=== PATIENT | female | born 1955 | race Caucasian/White ===

== ENCOUNTER 2020-08-29 09:19 | Outpatient (CLI) | payer OTHER, SELFPAY ==
--- NOTE | ~2020-08-29 | MM_ITS ---
EXAMINATION: MM screening neema BI w maco HISTORY: Screening mammogram, family history of breast cancer in her mother. TECHNIQUE: Craniocaudal and mediolateral oblique 3-D tomosynthesis images were obtained and synthetic 2-D images were generated. CAD analysis was submitted and interpreted. COMPARISON: 08/26/2019, 08/25/2018, 10/19/2018, 08/13/2017 BREAST PARENCHYMAL COMPOSITION: There are scattered areas of fibroglandular density. FINDINGS: There is no evidence of suspicious mass, calcification, or architectural distortion to sugg est malignancy in either breast. There has been no suspicious interval change. IMPRESSION: 1. No mammographic evidence of malignancy. 2. Recommend routine screening mammography in one year. BI-RADS Category 1: Negative Reviewed, dictated and finalized at location A. E SUPERINTENDENT
== END 2020-08-29 09:20 | disposition home or self-care (01) ==
LOC: ANHIMG 09:22
PROVIDERS: PCP Obstetrics & Gynecology; Visit Provider Obstetrics & Gynecology
DX: Z12.31 Encounter for screening mammogram for malignant neoplasm of breast (principal)
CPT/HCPCS: 77063; 77067

== ENCOUNTER 2021-03-01 12:42 | Outpatient (CLI) | payer OTHER, SELFPAY ==
[2021-03-01 13:58] LABS: Basophils Absolute Auto 0.1 K/mm3 (0.0-0.1); Basophils Percent Auto 0.7 % (0.2-1.2); Eosinophils Absolute Auto 0.4 K/mm3 (0-0.3); Hematocrit 41.6 % (37.0-47.0); Hemoglobin 13.7 g/dL (12.0-15.0); Immature Granulocyte Absolute 0.03 K/mm3 (0.00-0.031); Immature Granulocyte Percent A 0.4 % (0-0.5); Lymphocytes Absolute Auto 2.27 K/mm3 (0.9-3.2); Lymphocytes Percent Auto 28.3 % (18.3-44.2); Mean Corpuscular HGB Conc 32.9 g/dl (32-36); Mean Corpuscular Hemoglobin 29.9 pg (26-34); Mean Corpuscular Volume 90.8 fl (80-100); Mean Platelet Volume 8.7 fl (7.4-10.4); Monocytes Absolute Auto 0.5 K/mm3 (0.1-0.6); Monocytes Percent Auto 6.7 % (2.6-8.5); Neutrophils Absolute Auto 4.7 K/mm3 (1.3-6.7); Neutrophils Percent Auto 58.9 % (45.5-73.1); Platelet Count Result 314 k/mm3 (150-375); Red Blood Count 4.58 M/mm3 (4.2-5.4); Red Cell Distribution Width 12.8 % (11.5-14.5)
[2021-03-01 14:09] LABS: INR 0.9; Partial Thromboplastin Time 25.2 SECONDS (22.3-36.8); Prothrombin Time 12.8 Seconds (11.1-14.7)
[2021-03-01 14:12] LABS: Alanine Aminotransferase 12 U/L (4-35); Albumin Level 4.7 g/dL (3.5-5.1); Alkaline Phosphatase 75 U/L (38-126); Anion Gap 2 mmol/L (8-16); Aspartate Amino Transferase 24 U/L (14-36); Bilirubin,Total 0.4 mg/dL (0.2-1.3); Blood Urea Nitrogen 14 mg/dL (7-17); Carbon Dioxide 35 mmol/L (22-30); Chloride 103 mmol/L (98-107); Estimated Glomerular Filt Rate > 60; Glucose 95 mg/dL (65-105); Potassium 3.9 mmol/L (3.4-5.0); Sodium 140 mmol/L (137-145)
== END 2021-03-01 12:43 | disposition home or self-care (01) ==
PROVIDERS: PCP Internal Medicine; Visit Provider Urology
DX: N39.3 Stress incontinence (female) (male) (principal); Z01.818 Encounter for other preprocedural examination
CPT/HCPCS: 36415; 80053; 85025; 85610; 85730; 86850; 86900; 86901; 87086

== ENCOUNTER → 2021-03-10 07:40 | Outpatient (CLI) | payer OTHER, SELFPAY ==
[2021-03-10 19:22] LABS: SARS-CoV-2 RNA PCR Negative
== END ==
PROVIDERS: PCP Internal Medicine; Visit Provider Urology
DX: Z01.812 Encounter for preprocedural laboratory examination (principal); Z20.822 Contact with and (suspected) exposure to COVID-19
CPT/HCPCS: C9803; U0003; U0005

== ENCOUNTER 2021-03-13 01:12 | Day surgery (SDC) | payer OTHER, SELFPAY ==
[2021-03-01 13:12] VITALS: BP 132/86; PULSE 69; RESP 16; TEMP 37.9; O2SAT 98; BMI 26.2
--- NOTE | 2021-03-10 08:10 | PM.IMHP ---
H&P: HPI History of Present Illness Date/Time: 03/10/21 08:10 65-year-old with post hysterectomy vaginal vault prolapse as well as stress incontinence Chief Complaint: Vaginal wall prolapse Review of Systems Review of Systems: All systems reviewed & are unremarkable except as noted in HPI and below PMFSH Family History Family History (Updated 03/10/21 @ 08:11 by Jam Sow MD) Other Breast cancer Social History Social History Smoking packs per day: 1 Smoking cigarettes per day: 20.0 Years smoked: 15 Smoking pack-years: 15.00 Smoking status: Former smoker Tobacco type: cigarettes Smoking end date: 04/20/00 Alcohol intake: current Substance use: never Additional living arrangements comments: HUSB Spiritual care concerns: No Meds Home Medications and Allergies Home Medications Medication Instructions Recorded Confirmed Type No Home Medications 03/01/21 03/01/21 History Allergies Allergy/AdvReac Type Severity Reaction Status Date / Time No Known Allergies Allergy Verified 03/01/21 13:09 Exam Const: General: cooperative and healthy appearing HENMT: Head: normal to inspection Face and sinus: normal facial exam Eyes: General: appearance normal, both eyes and all related structures Resp: Effort & Inspection: normal respiratory effort and able to speak in complete sentences GI: Inspection: normal to inspection : Bimanual Exam- Adnexa, other: cystocele (+3) and vaginal apex descent (-1) Skin: General skin exam: normal color Neuro: General: oriented to person, oriented to place and oriented to time Extrem: General: normal to inspection Assessment and Plan Assessment and plan (1) Prolapse of vaginal vault after hysterectomy: Code(s): N99.3 - Prolapse of vaginal vault after hysterectomy Status: Acute Assessment and Plan: Robotic sacral colpopexy (2) OTTO (stress urinary incontinence, female): Code(s): N39.3 - Stress incontinence (female) (male) Status: Acute Assessment and Plan: Urethral sling
[2021-03-13] VITALS (14 sets, daily range): BP systolic 89–170; BP diastolic 56–85; PULSE 45–97; RESP 8–20; TEMP 36.2–36.8; O2SAT 97–100; BMI 26.2
--- NOTE | 2021-03-13 07:20 | WPDHPUPDATE1 ---
History and Physical Update Update Date/Time: 03/13/21 07:20 History and Physical has been reviewed, including an updated exam of the patient. There are NO changes in the patient's condition. Risks, benefits, and alternatives have been discussed and questions answered. Patient agrees to proceed with procedure.
--- NOTE | 2021-03-13 09:43 | WPDANESEPPF ---
Anes - Initial Pre Proc Eval Procedure: Operation Date: 03/13/21 10:30 Proposed Procedures p Robotic Sacrocolpopexy, - Jam Sow MD s Urethral Sling - Jam Sow MD Date/Time: 03/13/21 09:43 Surgeon: Jam Sow MD Pre Op Diagnosis: stress incontinence, vag vault prolapse Patient Data Age: 65 Gender: F Height: 1.59 m Weight: 66 kg Last Vital Signs Temp 36.6 C 03/13/21 08:53 Pulse 69 03/13/21 08:53 Resp 18 03/13/21 08:53 BP 170/80 H 03/13/21 08:53 Pulse Ox 99 03/13/21 08:53 Allergies Allergy/AdvReac Type Severity Reaction Status Date / Time No Known Allergies Allergy Verified 03/13/21 08:57 Home Medications Medication Instructions Recorded Confirmed Type No Home Medications 03/01/21 03/01/21 History Patient hx anesthesia problems: none Family hx anesthesia problems: none PMFSH Past Medical History Medical History (Updated 03/13/21 @ 09:41 by Garrett Romeo MD) GERD (gastroesophageal reflux disease) Family History Family History (Updated 03/10/21 @ 08:11 by Jam Sow MD) Other Breast cancer Social History Social History Smoking packs per day: 1 Smoking cigarettes per day: 20.0 Years smoked: 15 Smoking pack-years: 15.00 Smoking status: Former smoker Tobacco type: cigarettes Smoking end date: 10/21/05 Alcohol intake: current Alcohol use details: FEW DRINKS/MONTH Substance use: never Living arrangements: with family Additional living arrangements comments: HUSB Spiritual care concerns: No Anes - Eval Final PreProcedure Day of Procedure 03/13/21 09:43 Patient weight: overweight Heart: regular rate and rhythm Lungs: clear to auscultation and normal air movement Airway: Mallampati scale class II Neurological: alert and oriented Last oral intake: >/= 8 hours ASA classification: II Emergent: no Anesthetic plan: proceed Anesthesia type and monitoring: general ETT and standard monitoring Informed Consent: The patient's anesthetic plan and its attendant risks and benefits were discussed with the patient/family/POA. Questions were solicited and answers provided to the satisfaction of the patient/family/POA.
[2021-03-13] MEDS: LACTATED RINGERS 1,000 ML 30 ML IV CONT ×2 (09:55→14:39)
[2021-03-13] MEDS: ceFAZolin 2 GM/D5W 50 ML 2 GM/50 ML BAG IVPB (10:49)
[2021-03-13] MEDS: BUPIVACAINE/EPINEPHRINE 0.25% 10 ML VIAL 20 ML INFILTRATE (11:37)
--- NOTE | 2021-03-13 14:17 | PM.PROC ---
Procedure Note - Detailed Date of procedure: 03/13/21 Pre-op diagnosis: stress incontinence, vag vault prolapse Post hysterectomy vaginal vault prolapse Stress urinary incontinence Post-op diagnosis: same Procedure performed: Robotic assisted laparoscopic sacral colpopexy Miid urethral sling Description of procedure: She understands the risks of bleeding, infection, recurrence of prolapse, diskitis, postoperative voiding dysfunction including incontinence and retention, dyspareunia, persistent or recurrent stress incontinence, vaginal mesh extrusion, urinary tract mesh erosion, bowel injury or obstruction, damage to surrounding organs, medical related complications. Agrees to proceed She was correctly identified and informed consent was obtained. She is brought to the operating room. She was given general anesthesia. She was placed in the low lithotomy position. All pressure points were padded. She was given appropriate perioperative antibiotics. A time-out was performed. I anesthetized the skin 3 fingerbreadths cephalad to the umbilicus. I incised the skin. I located the fascia. I entered the fascia sharply. I placed Vicryl sutures for later fascial closure. I placed a midline trocar. Under direct vision 2 additional trocars were placed in the right and left upper quadrant. She was placed in steep Trendelenburg. The robot was docked. I then sat at the console. There are quite a bit of adhesions of the colon in the cul-de-sac. The colon was also adhesed to the right lower quadrant. I took down all adhesions sharply taking great care not to injure underlying organs. With the Sizer in the vagina I created a plane on the anterior and posterior vaginal wall. I took great care not to injure the vagina bladder or rectum. I introduced the mesh into the abdomen. I sewed the anterior leaflet of mesh on the anterior vaginal wall and posterior leaflet of mesh on the posterior vaginal wall with several sutures with 2 Goritex taking great care not to go through and through. I then reflected the colon laterally. I opened up the peritoneum over the sacral promontory. I carried this incision into the cul-de-sac. I located the ureter and kept lateral. I freed up the edges of the peritoneum. I located the anterior longitudinal ligament of the sacrum. I then tensioned my mesh appropriately. I did a vaginal exam to ensure prolapse reduction without undue tension. I then sewed the proximal leaflet of mesh onto the ligament with 4 sutures of 2 0 [place]-Sinan. I used a 2 0 Monocryl to completely and meticulously retroperitonealized all mesh. I allowed the colon to go back into its normal anatomic location no sign of any impingement or stricturing. The abdomen was exited. Fascial sutures were closed. Skin was closed. Glue was applied. She was repositioned and prepped for urethral sling. I marked out the thigh incisions. I anesthetized the skin and made those incisions. I anesthetized the anterior vaginal wall over the mid urethra. I made a 1 cm incision. I dissected out laterally taking great care not to injure the urethra or the vaginal wall. I passed the helical trocars. First on the left and then on the right. This was done from the thigh incision towards the vaginal incision. The sling was connected to the trocars and brought out through the thigh incision. I tensioned the sling appropriately. I cut and removed the plastic sheaths. I then closed the incision with 2 0 Vicryl. Cystoscopy showed no surgical artifact in the bladder. No surgical artifact in the urethra. Ureteral orifices were seen to excrete clear yellow urine. The Barbour catheter was replaced. She was awakened and transferred to the PACU in stable condition. Implants: Y mesh Anesthesia: GETA Surgeon: Jam Sow MD Drains: Yes (Barbour catheter) Packing: No Pathology: none sent Complications: No immediate complications Condition: stable Disposition: PACU
[2021-03-13] MEDS: fentaNYL CITRATE INJ (*CRX) 100 MCG/2 ML VIAL 25 MCG IV PUSH ×3 (14:35→15:01)
--- NOTE | 2021-03-13 16:16 | SUR.PHASEII ---
1607 - pt sleepy. pt states that she would like to stay the night. dr. buck aware. pt's daughter Sarina called and aware.
[2021-03-13] MEDS: KCL 20 MEQ/D5/0.45% SOD CHL 1,000 ML 100 ML IV CONT (17:30)
--- NOTE | 2021-03-13 17:36 | OBPPTRN ---
1709 Patient transferred to post room #280 via bed. Oriented to unit, room, information board, admission packet and security measures. Patient verbalizes understanding.
[2021-03-13] MEDS: ONDANSETRON INJ 4 MG/2 ML VIAL IV PUSH (20:16)
[2021-03-14] MEDS: FAMOTIDINE 20 MG TABLET PO (01:52)
[2021-03-14 05:50] VITALS: BP 107/62; PULSE 93; RESP 15; TEMP 37.2
[2021-03-14] MEDS: DOCUSATE SODIUM 100 MG CAPSULE PO (07:40)
[2021-03-14] MEDS: ACETAMINOPHEN 325 MG TABLET 650 MG PO (07:41)
[2021-03-14 08:35] VITALS: BP 104/65; PULSE 76; RESP 16; TEMP 37.7; O2SAT 99
--- NOTE | 2021-03-14 08:54 | WPDANESPN ---
Anes - Prog Note Post-Op Date/Time: 03/14/21 08:54 Cardiovascular status: normal Respiratory status: normal Airway patency: baseline Mental status: baseline Post-Op hydration status: normal Vital Signs: Last Vital Signs Temp 37.2 C 03/14/21 05:50 Pulse 93 03/14/21 05:50 Resp 15 03/14/21 05:50 BP 107/62 03/14/21 05:50 Pulse Ox 98 03/13/21 17:09 Pain Score (VAS): 3 I/O: Intake & Output 03/13/21 03/14/21 03/14/21 23:59 07:59 15:59 Intake Total 200 2000 Output Total 200 3600 Balance 0 -1600 Post-procedural complaints: none Patient Feedback: Patient satisfied with anesthetic care.
[2021-03-14] MEDS: ENOXAPARIN 30 MG/0.3 ML SYRINGE SUB-Q (09:30)
--- NOTE | 2021-03-14 12:15 | WPDUROPN2 ---
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 (2) OTTO (stress urinary incontinence, female): Code(s): N39.3 - Stress incontinence (female) (male) Status: Acute Subjective Subjective Date/Time Seen: 03/14/21 12:15 POD# 1 Robotic Assisted Laparoscopic Sacaral Colpopexy, Mid Urethral Sling Patient doing very well, has no complaints today, is waiting to urinate since jackson was pulled. Pain is tolerable and no nausea with eating or drinking. Review of Systems Cardiovascular: Cardiovascular: Denies chest pain Respiratory: Respiratory: Reports no additional respiratory complaints Gastrointestinal: Gastrointestinal: Denies abdominal pain, Denies nausea and Denies vomiting Genitourinary: Genitourinary: Denies hematuria, Denies dysuria, Denies pelvic pain, Denies flank pain and Denies urinary urgency Exam Resp: Effort & Inspection: normal respiratory effort Cardio: Rate: regular rate GI: Inspection: incision (all are well approximated, no drainage or edema noted, slightly tender ) : General: Yes no CVA tenderness Extrem: General: no edema Objective Data Vital Signs Vital Signs: Vital Signs - 24 hr 03/13/21 14:19 03/13/21 14:30 03/13/21 14:45 Temperature Pulse Rate 59 L 45 L 61 Respiratory Rate 12 9 L 11 L Blood Pressure 128/77 125/84 118/84 Pulse Oximetry 99 100 100 03/13/21 15:00 03/13/21 15:15 03/13/21 15:30 Temperature Pulse Rate 50 L 50 L 61 Respiratory Rate 10 L 8 L 12 Blood Pressure 89/61 L 91/56 L 116/74 Pulse Oximetry 100 100 100 03/13/21 15:40 03/13/21 15:43 03/13/21 16:10 Temperature Pulse Rate 67 54 L 58 L Respiratory Rate 13 20 20 Blood Pressure 119/73 137/85 121/62 Pulse Oximetry 97 03/13/21 16:40 03/13/21 17:09 03/13/21 19:00 Temperature 97.1 F L 98.0 F Pulse Rate 97 59 L 85 Respiratory Rate 20 12 14 Blood Pressure 120/66 123/73 135/84 Pulse Oximetry 98 03/13/21 23:00 03/14/21 05:50 03/14/21 08:35 Temperature 98.2 F 99.0 F 99.8 F H Pulse Rate 78 93 76 Respiratory Rate 16 15 16 Blood Pressure 130/78 107/62 104/65 Pulse Oximetry 99 Intake/Output Intake/Output: Intake & Output 03/11/21 03/12/21 03/13/21 03/14/21 23:59 23:59 23:59 23:59 Intake Total 600 2050 Output Total 300 3600 Balance 300 -1550 Meds/Results Medications: Active Medications Generic Name Dose Route Start Last Admin Trade Name Freq PRN Reason Stop Dose Admin Acetaminophen 650 mg 03/13/21 17:03 03/14/21 07:41 Acetaminophen 325 Mg Tablet PO 650 mg Q4H PRN Administration Mild Pain (1-3) or Fever Hydrocodone Bitart/Acetaminophen 1 tab 03/13/21 17:03 Hydrocodone/Acetaminophen (*Crx) 5-325 Mg Tablet PO Q4H PRN Pain Rated 4-5 Cephalexin HCl 500 mg 03/14/21 17:00 Cephalexin 500 Mg Capsule PO QID TIFFANY Diphenhydramine HCl 25 mg 03/13/21 17:03 Diphenhydramine Hcl Inj 50 Mg/Ml Vial IV PUSH Q6H PRN Itching Docusate Sodium 100 mg 03/14/21 09:00 03/14/21 07:40 Docusate Sodium 100 Mg Capsule PO 100 mg DAILY TIFFANY Administration Enoxaparin Sodium 30 mg 03/14/21 09:00 03/14/21 09:30 Enoxaparin 30 Mg/0.3 Ml Syringe SUB-Q 30 mg DAILY TIFFANY Administration Potassium Chloride/Dextrose/Sod Cl 1,000 mls @ 100 mls/hr 03/13/21 17:03 03/13/21 17:30 Kcl 20 Meq/D5/0.45% Sod Chl IV CONT 100 mls/hr .Q10H TIFFANY Administration Ketorolac Tromethamine 15 mg 03/13/21 17:03 Ketorolac 15 Mg/Ml Vial (*Bkc) IV PUSH 03/14/21 17:04 Q8H PRN Pain Rated 5 or Less Morphine Sulfate 2 mg 03/13/21 17:03 Morphine Sulfate (*Crx) 2 Mg/Ml Inj IV PUSH Q2H PRN Pain Rated 6 or Greater Ondansetron HCl 4 mg 03/13/21 17:03 03/13/21 20:16 Ondan
== END 2021-03-14 14:20 | disposition home or self-care (01) ==
LOC: ANHSURGERY 14:21 → ANHOB2 17:05
PROVIDERS: PCP Internal Medicine; Visit Provider Urology
PROC: (CPT 57425; principal; 2021-03-13 10:30)
PROC: (CPT 57425; 2021-03-13 10:30)
DX: N39.3 Stress incontinence (female) (male) (principal); N99.3 Prolapse of vaginal vault after hysterectomy; K21.9 Gastro-esophageal reflux disease without esophagitis; Z87.891 Personal history of nicotine dependence
CPT/HCPCS: 57425; 57288; 36415; 80053; 85025; 85610; 85730; 86850; 86900; 86901; 87086; 99199; A9270; C1771; C1781; C9290; C9803; J0690; J1100; J1170; J1650; J2250; J2405; J2704; J2710; J3010; J3480; J7030; J7120; U0003; U0005

== ENCOUNTER 2021-09-19 08:46 | Outpatient (CLI) | payer OTHER, SELFPAY ==
--- NOTE | ~2021-09-19 | MM_ITS ---
EXAMINATION: MM screening neema BI w maco HISTORY: Screening mammogram TECHNIQUE: Craniocaudal and mediolateral oblique 3-D tomosynthesis images were obtained and synthetic 2-D images were generated. CAD analysis was submitted and interpreted. COMPARISON: 08/29/2020, 08/26/2019 bilateral screening mammogram examinations BREAST PARENCHYMAL COMPOSITION: There are scattered areas of fibroglandular density. FINDINGS: There is no evidence of suspicious mass, calcification, or architectural distortion to sugg est malignancy in either breast. There has been no suspicious interval change. IMPRESSION: 1. No mammographic evidence of malignancy. 2. Recommend routine screening mammography in one year. BI-RADS Category 1: Negative Reviewed, dictated and finalized at location A. ANCE SERVICES COORDINATOR
== END 2021-09-19 08:47 | disposition home or self-care (01) ==
PROVIDERS: PCP Internal Medicine; Visit Provider Obstetrics & Gynecology
DX: Z12.31 Encounter for screening mammogram for malignant neoplasm of breast (principal)
CPT/HCPCS: 77063; 77067

== ENCOUNTER 2022-10-12 13:49 | Outpatient (CLI) | payer OTHER, MEDICARE, SELFPAY ==
--- NOTE | ~2022-10-12 | MMUS_ITS ---
EXAMINATION: MM diagnostic neema BI w maco, US breast LT limited HISTORY: Palpable left breast abnormality. TECHNIQUE: Additional 3-D tomosynthesis images of the left breast were performed and synthetic 2-D im ages were generated. CAD analysis was submitted and interpreted. High resolution Limited left breast ultrasound was performed. COMPARISON: Comparison to multiple prior studies sequentially, with oldest reviewed study dated 07/22. BREAST PARENCHYMAL COMPOSITION: BREAST PARENCHYMAL COMPOSITION: There are scattered areas of fibroglandular density. FINDINGS: MAMMOGRAPHIC FINDINGS: There are no suspicious masses, calcifications or architectural distortion in the left breast to sugg est malignancy. ULTRASOUND: Limited left breast ultrasound: Normal heterogeneous echotexture in the area of palpable concern. No discrete mass. IMPRESSION: 1. No evidence for malignancy in either breast. 2. Routine yearly screening mammogram and regular clinical breast examination are recommended. BI-RADS Category 1: Negative Reviewed, dictated and finalized at location A. 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 No evidence for malignancy in either breast. 2. Routine yearly screening mammogram and regular clinical breast examination a re recommended. BI-RADS Category 1: Negative
== END 2022-10-12 13:50 | disposition home or self-care (01) ==
LOC: ANHIMG 13:51
PROVIDERS: PCP Internal Medicine; Visit Provider Obstetrics & Gynecology
DX: R92.8 Other abnormal and inconclusive findings on diagnostic imaging of breast (principal)
CPT/HCPCS: 76642; 77062; 77066; G0279

== ENCOUNTER 2023-03-08 09:00 | Outpatient (CLI) | payer MEDICARE, SELFPAY | END 2023-03-08 09:01 | disposition home or self-care (01) | LOC: ANHAUDIO 09:03 | PROVIDERS: PCP Emergency Medicine; Visit Provider Emergency Medicine | DX: H90.3 Sensorineural hearing loss, bilateral (principal) | CPT/HCPCS: 92557; 92567 ==

== ENCOUNTER 2023-04-05 02:43 | Day surgery (SDC) | payer MEDICARE, SELFPAY ==
[2023-03-27 13:14] VITALS: BMI 26.5
--- NOTE | 2023-04-05 07:43 | WPDANESEPPF ---
Anes - Initial Pre Proc Eval Procedure: Operation Date: 04/05/23 09:30 Proposed Procedures p Esophagogastroduodenoscopy - Rowdy Tovar MD Date/Time: 04/05/23 07:43 Surgeon: Rowdy Tovar MD Pre Op Diagnosis: harvey's Esophagus Patient Data Age: 67 Gender: F Height: 1.57 m Weight: 65.77 kg Allergies Allergy/AdvReac Type Severity Reaction Status Date / Time No Known Allergies Allergy Verified 03/13/21 08:57 Patient hx anesthesia problems: none Family hx anesthesia problems: none Results Review: All pre-operative results and documents have been reviewed as part of the pre-operative evaluation. 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 OTTO (stress urinary incontinence, female) Surgical History Surgical History (Updated 04/05/23 @ 07:44 by Shola Miner MD) H/O lumpectomy H/O: hysterectomy Family History Family History (Updated 03/10/21 @ 08:11 by Jam Sow MD) Other Breast cancer Social History Social History Smoking packs per day: 1 Smoking cigarettes per day: 20.0 Years smoked: 15 Smoking pack-years: 15.00 Smoking status: Never smoker Tobacco type: cigarettes Smoking end date: 04/20/00 Alcohol intake: unknown Alcohol use details: FEW DRINKS/MONTH Substance use: never Substance use type: does not use Living arrangements: with family Additional living arrangements comments: HUSB Spiritual care concerns: No Anes - Eval Final PreProcedure Day of Procedure 04/05/23 07:43 Patient weight: overweight Heart: regular rate and rhythm Lungs: clear to auscultation and normal air movement Airway: Mallampati scale class II Neurological: alert and oriented Last oral intake: >/= 8 hours ASA classification: II Emergent: no Anesthetic plan: proceed Anesthesia type and monitoring: general GIVS and standard monitoring Results Review: All pre-operative results and documents have been reviewed as part of the pre-operative evaluation. Informed Consent: The patient's anesthetic plan and its attendant risks and benefits were discussed with the patient/family/POA. Questions were solicited and answers provided to the satisfaction of the patient/family/POA.
[2023-04-05 08:37] VITALS: BMI 27.7
[2023-04-05 08:46] VITALS: BP 143/77; PULSE 77; RESP 18; TEMP 37.1; O2SAT 100
[2023-04-05] MEDS: LACTATED RINGERS 1,000 ML 150 ML IV CONT (09:01)
--- NOTE | 2023-04-05 09:33 | P.HP_ITS ---
History of Present Illness History of Present Illness Consent: Risks, benefits, and alternatives have been discussed and questions answered. Patient agrees to proceed with procedure. Chief complaint: GERD Narrative: Evita Torres is a 67 year old female Presents for EGD. Patient complains of chronic heartburn that she has had for many years. It occurred daily. Frequent substernal heartburn was noted. Patient denies any bleeding. She has had no dysphagia. She typically would take [id number] antacids and Tums frequently. One month ago was started on omeprazole 20mg p.o. daily. She states this has helped her heartburn dramatically. She no longer has heartburn. She currently is avoiding caffeine and spicy foods. She has elevated her head of bed at night. Patient referred today for EGD because of chronic GE reflux. Family history noncontributory. Review of Systems Review of Systems: Review of systems noncontributory. [facility] Past Medical History Medical History (Updated 04/05/23 @ 09:35 by Rowdy Tovar MD) GERD (gastroesophageal reflux disease) Overweight (BMI 25.0-29.9) Prolapse of vaginal vault after hysterectomy OTTO (stress urinary incontinence, female) Surgical History Surgical History (Updated 04/05/23 @ 07:44 by Shola Miner MD) H/O lumpectomy H/O: hysterectomy Family History Family History (Updated 03/10/21 @ 08:11 by Jam Sow MD) Other Breast cancer Social History Social History Smoking packs per day: 1 Smoking cigarettes per day: 20.0 Years smoked: 15 Smoking pack-years: 15.00 Smoking status: Never smoker Tobacco type: cigarettes Smoking end date: 04/20/00 Alcohol intake: unknown Alcohol use details: FEW DRINKS/MONTH Substance use: never Substance use type: does not use Living arrangements: with family Additional living arrangements comments: HUSB Spiritual care concerns: No Meds Home Medications and Allergies Allergies Allergy/AdvReac Type Severity Reaction Status Date / Time No Known Allergies Allergy Verified 03/13/21 08:57 Vital Signs Vital Signs - 24 hr 04/05/23 08:46 Temperature 98.8 F Pulse Rate 77 Respiratory Rate 18 Blood Pressure 143/77 H Pulse Oximetry 100 Exam Narrative: Physical exam reveals patient to be alert. Vital signs stable. HEENT exam is unremarkable. Patient is anicteric. Lungs are clear to auscultation and percussion. Heart is without murmur or extra sounds. Abdomen bowel sounds are present soft nontender with no organomegaly. Assessment and Plan Assessment and plan (1) GERD (gastroesophageal reflux disease): Code(s): K21.9 - Gastro-esophageal reflux disease without esophagitis Status: Acute Assessment and Plan: Patient with chronic heartburn. Acid reflux appears to be the etiology. Good response to omeprazole 20mg p.o. daily. Plan to continue this medication long- term. Anti-reflux measures also encouraged. Screening EGD to exclude Crespo's esophagus encouraged. Additionally patient should undergo screening colonoscopy if not already accomplished.
[2023-04-05 09:53] VITALS: BP 117/69; PULSE 66; RESP 19; O2SAT 100
[2023-04-05 10:03] VITALS: BP 125/83; PULSE 64; RESP 20; O2SAT 99
[2023-04-05 10:13] VITALS: BP 144/80; PULSE 61; RESP 16; O2SAT 100
== END 2023-04-05 10:16 | disposition home or self-care (01) ==
PROVIDERS: PCP Emergency Medicine; Visit Provider Internal Medicine Gastroenterology
PROC: 0DJ08ZZ Inspection of Upper Intestinal Tract, Via Natural or Artificial Opening Endoscopic (ICD-10-PCS; CPT 43235; principal; 2023-04-05 09:30)
DX: K22.10 Ulcer of esophagus without bleeding (principal); K21.9 Gastro-esophageal reflux disease without esophagitis; K44.9 Diaphragmatic hernia without obstruction or gangrene; Z87.891 Personal history of nicotine dependence
CPT/HCPCS: 43235; J2704; J7120

== ENCOUNTER 2024-08-26 08:20 | Outpatient (CLI) | payer MEDICARE, SELFPAY ==
--- NOTE | ~2024-08-26 | MM_ITS ---
EXAMINATION: MM screening neema BI w maco HISTORY: Screening TECHNIQUE: Craniocaudal and mediolateral oblique 3-D tomosynthesis images were obtained and synthetic 2-D images were generated. CAD analysis was submitted and interpreted. COMPARISON: Comparison to multiple prior studies sequentially, with oldest reviewed study dated 07/23. BREAST PARENCHYMAL COMPOSITION: Not dense: There are scattered areas of fibroglandular density. FINDINGS: There is no evidence of suspicious mass, calcification, or architectural distortion to sugg est malignancy in either breast. There has been no suspicious interval change. IMPRESSION: 1. No mammographic evidence of malignancy. 2. Recommend routine screening mammography in one year. BI-RADS Category 1: Negative Reviewed, dictated and finalized at location B. 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
== END 2024-08-26 08:21 | disposition home or self-care (01) ==
LOC: ANHIMG 08:24
PROVIDERS: PCP Family Medicine; Visit Provider Obstetrics & Gynecology
DX: Z12.31 Encounter for screening mammogram for malignant neoplasm of breast (principal)
CPT/HCPCS: 77063; 77067